=== PATIENT | male | born 1995 | race African-American/Black ===

== ENCOUNTER 2022-01-08 09:13 | Emergency (ER) | payer OTHER, SELFPAY | END 2022-01-08 10:16 | disposition home or self-care (01) | LOC: CSHERS 09:13 | DX: K08.89 Other specified disorders of teeth and supporting structures (principal) | CPT/HCPCS: 99282 ==

== ENCOUNTER 2023-01-11 12:15 | Emergency (ER) | payer MEDICAID, OTHER, SELFPAY ==
[2023-01-11] MEDS ORDERED: predniSONE 20 MG TAB ONE (13:51)
[2023-01-11] MEDS ORDERED: Ipratropium/Albuterol 3 ML NEB ONE (13:55)
== END 2023-01-11 14:40 | disposition home or self-care (01) ==
LOC: CSHERS 12:15
DX: J45.901 Unspecified asthma with (acute) exacerbation (principal); F17.210 Nicotine dependence, cigarettes, uncomplicated
CPT/HCPCS: 71045; 93005; 94640; J7512; J7620

== ENCOUNTER 2023-01-21 13:36 | Emergency (ER) | payer MEDICAID, OTHER | END 2023-01-21 15:20 | disposition home or self-care (01) | LOC: CSHERS 13:36 | DX: R07.89 Other chest pain (principal); F17.210 Nicotine dependence, cigarettes, uncomplicated | CPT/HCPCS: 71045; 93005 ==

== ENCOUNTER 2023-02-17 10:01 | Emergency (ER) | payer OTHER ==
[2023-02-17 11:18] LABS: SARS-CoV-2 NAA Rapid Test Not Detected (NotDetected)
== END 2023-02-17 11:57 | disposition home or self-care (01) ==
LOC: CSHERS 10:01
DX: J20.9 Acute bronchitis, unspecified (principal); F17.210 Nicotine dependence, cigarettes, uncomplicated; Z20.822 Contact with and (suspected) exposure to COVID-19
CPT/HCPCS: 71045

== ENCOUNTER 2023-03-29 16:46 | Emergency (ER) | payer OTHER, SELFPAY ==
[2023-03-29] MEDS ORDERED: cefTRIAXone (ROCEPHIN) 500 MG VIAL ONE (17:35)
[2023-03-29] MEDS ORDERED: Sterile Water 10 ML ONE (17:35)
[2023-03-29 17:48] LABS: Bilirubin Neg (Negative); Blood, Urine Negative (Negative); Clarity Clear (Clear); Glucose, Urine (Dipstick) Normal (Negative); Ketone, Urine Negative (Negative); Leukocyte Negative (Negative); Nitrite Negative (Negative); Protein, Urine (Dipstick) 15 mg/dl (Neg-Trace); Specific Gravity, Urine 1.015 (1.005-1.030)
[2023-03-29 18:04] LABS: Bacteria/HPF 1+ HPF (None Seen); CAUTI Indications for Culture Dysuria,urgency,freq; RBC/HPF 0-3 HPF (0-3); Squamous Epithelial 0-3 HPF (0-3)
[2023-03-29 18:05] LABS: Urine Culture Reflex No No
[2023-03-31 13:46] LABS: Chlam.trachomatis by PCR,Urine DETECTED (NotDetected); GC N.gonorrhoeae PCR,UrineVOID Not Detected (NotDetected)
== END 2023-03-29 17:44 | disposition home or self-care (01) ==
LOC: CSHERS 16:46
DX: Z20.2 Contact with and (suspected) exposure to infections with a predominantly sexual mode of transmission (principal); F17.210 Nicotine dependence, cigarettes, uncomplicated
CPT/HCPCS: 81001; 87491; 87591; 96372; 99283; J0696

== ENCOUNTER 2023-04-11 13:59 | Emergency (ER) | payer MEDICAID, OTHER, SELFPAY ==
[2023-04-11] MEDS ORDERED: Dexamethasone 10 MG/ML VIAL ONE (15:59)
== END 2023-04-11 16:00 | disposition home or self-care (01) ==
LOC: CSHERS 13:59
DX: J03.90 Acute tonsillitis, unspecified (principal); F17.210 Nicotine dependence, cigarettes, uncomplicated
CPT/HCPCS: 87081; 87430; 99283; J1100

== ENCOUNTER 2023-05-20 05:02 | Emergency (ER) | payer MEDICAID, OTHER ==
[2023-05-20] MEDS ORDERED: Acetaminophen 500 MG TAB ONE (05:27)
[2023-05-20] MEDS ORDERED: Ipratropium/Albuterol 3 ML NEB ONE (05:36)
[2023-05-20] MEDS ORDERED: Albuterol 2.5 MG/0.5 ML NEB ONE (05:58)
[2023-05-20] MEDS ORDERED: predniSONE 20 MG TAB ONE (06:01)
[2023-05-20 06:15] LABS: SARS-CoV-2 NAA Rapid Test Not Detected (NotDetected)
[2023-05-20] MEDS ORDERED: Oseltamivir 75 MG CAP PO SCH (06:30)
== END 2023-05-20 06:45 | disposition home or self-care (01) ==
LOC: CSHERS 05:02
DX: J11.1 Influenza due to unidentified influenza virus with other respiratory manifestations (principal); Z20.822 Contact with and (suspected) exposure to COVID-19
CPT/HCPCS: 71045; 93005; 94640; J7512; J7611; J7620